=== PATIENT | male | born 1960 | race Caucasian/White ===

== ENCOUNTER 2019-01-24 23:36 | Emergency (ER) | payer OTHER ==
[2019-01-25] MEDS ORDERED: Ketorolac 60 MG/2 ML SDV IM ONE (00:06)
--- NOTE | 2019-01-25 00:12 | EDM.PDOC ---
ED HPI GENERAL MEDICAL PROBLEM - General Chief Complaint: Back Pain or Injury Stated Complaint: PT RONY BACK Time Seen by Provider: 01/25/19 00:00 - History of Present Illness INITIAL COMMENTS - FREE TEXT/NARRATIVE: HISTORY AND PHYSICAL: History of present illness: The patient is a 58-year-old male who works in the [employer] and presents after falling into a hole while walking, which was filled with water and he did not see that it had depth, and injuring his left back and hip area. The patient said that the event occurred about 6:45 PM and due to issues with work it is taking him sometimes to get here for evaluation. He has not taken any medication for this pain. He describes the pain as in his left posterior back radiating to his butt and his left hip area. He says that it is challenging to move his hip and rotate his leg and to weight-bear. He has a history of bulging disks at L4 and L5 for which she has done physical therapy and he has never had surgery for. The patient says that he was walking and the hole was filled with water so he did not know it had any depth and he stepped into it with his left leg and it was about knee deep. He put all his weight on this left side. He has no right-sided back pain no flank pain no head or neck pain. Prior to these events he was in his usual state of good health without systemic issues. Review of systems: As per history of present illness and below otherwise all systems reviewed and negative. Past medical history: As per history of present illness and as reviewed below otherwise noncontributory. Surgical history: As per history of present illness and as reviewed below otherwise noncontributory. Social history: No reported history of drug or alcohol abuse. Family history: As per history of present illness and as reviewed below otherwise noncontributory. Physical exam: General: Well-developed well-nourished mildly overweight man who is nontoxic and vital signs are noted by me HEENT: Atraumatic, normocephalic, negative for conjunctival pallor or scleral icterus, mucous membranes moist, throat clear, neck supple, nontender, trachea midline. Lungs: Clear to auscultation, breath sounds equal bilaterally, chest nontender. Heart: S1S2, regular rate and rhythm no overt murmurs Abdomen: Soft, nondistended, nontender. Negative for masses or hepatosplenomegaly. Negative for costovertebral tenderness. Pelvis: Stable to rock, there is some tenderness with palpation of the posterior lateral hip area but there is no ecchymosis erythema or warmth and no bony abnormalities appreciated. The patient has limited range of motion at the hip and can flex but has limited internal and external rotation due to discomfort and he resists me doing it passively. He also has some tenderness with palpation of the inguinal area without masses. Genitourinary: Deferred. Rectal: Deferred. Extremities: Atraumatic, negative for cords or calf pain. Neurovascular unremarkable. No palpable defects or deformities are appreciated throughout the lower extremities more specifically the left lower leg. There is no malalignment and no swelling of the femur knee tib-fib ankle or foot. Neuro: Awake, alert, oriented. Cranial nerves II through XII unremarkable. Cerebellum unremarkable. Motor and sensory unremarkable throughout. Exam nonfocal. Tone is normal in lower extremities and the patient can dorsi and plantar flex bilaterally 5/5 inclusive of the great toe and he can invert and vijay his feet Back: There are no midline step-offs in his defects of the thoracic or lumbar spine but there is some posterior pelvis tenderness on the left without defects or deformities and some SI joint tenderness as well as tenderness with palpation of the buttocks near the sciatic notch. There is no right-sided tenderness and there is no visible evidence of any trauma such as ecchymosis erythema or soft tissue swelling Diagnostics: X-ray left hip with pelvis, LS spine x-ray Therapeutics: Toradol Norflex She is aware of x-ray findings including the advanced osteoarthritis of bilateral hips left greater than right which he was unaware of and the degenerative disc disease which he was aware of. I recommended that he follow- up for his employer's direction for occupational health and I will give him a note to be off work for the next 24 hours. I will give him [facility] for home Impression: Left lumbar back and hip pain/injury, diffuse degenerative disc disease of the lumbar spine and advanced osteoarthritis and bilateral hips per x-rays Definitive disposition and diagnosis as appropriate pending reevaluation and review of above. back area Pain Score (Numeric/FACES): 10 - Related Data Allergies Allergy/AdvReac Type Severity Reaction Status Date / Time No Known Allergies Allergy Verified 01/24/19 23:51 Home Meds: Home Meds Blood Pressure Meds 1 tab PO DAILY 01/24/19 [History] Past Medical History HEENT History: Reports: None Cardiovascular History: Reports: Hypertension Respiratory History: Reports: None Gastrointestinal History: Reports: None Genitourinary History: Reports: None Musculoskeletal History: Reports: None Neurological History: Reports: None Psychiatric History: Reports: None Endocrine/Metabolic History: Reports: None Insulin Pump Model and Cloud Developer: N/A Hematologic History: Reports: None Immunologic History: Reports: None Oncologic (Cancer) History: Reports: None Dermatologic History: Reports: None - Infectious Disease History Infectious Disease History: Reports: Hepatitis C - Past Surgical History Head Surgeries/Procedures: Reports: None Social & Family History - Family History Family Medical History: Noncontributory - Tobacco Use Smoking Status *Q: Current Every Day Smoker Years of Tobacco use: 8 Packs/Tins Daily: 1 - Caffeine Use Caffeine Use: Reports: None - Recreational Drug Use Recreational Drug Use: No ED ROS GENERAL - Review of Systems Review Of Systems: ROS reveals no pertinent complaints other than HPI. ED EXAM, GENERAL - Physical Exam Exam: See Below (See dictation) Course - Vital Signs Last Recorded V/S: Last Vital Signs Temp 36.5 C 01/24/19 23:50 Pulse 74 01/24/19 23:50 Resp 18 01/24/19 23:50 BP 155/82 H 01/24/19 23:50 Pulse Ox 98 01/24/19 23:50 - Orders/Labs/Meds Meds: Medications Discontinued Medications Generic Name Dose Route Start Last Admin Trade Name Freq PRN Reason Stop Dose Admin Ketorolac Tromethamine 60 mg 01/25/19 00:06 01/25/19 00:16 Toradol IM 01/25/19 00:07 60 mg ONETIME ONE Administration Orphenadrine Citrate 60 mg 01/25/19 00:06 01/25/19 00:15 Norflex IM 01/25/19 00:07 60 mg ONETIME ONE Administration Departure - Departure Time of Disposition: 01:18 Disposition: Home, Self-Care 01 Condition: Good Clinical Impression: Acute exacerbation of chronic low back pain Injury of hip, left Qualifiers: Encounter type: initial encounter Qualified Code(s): S79.912A - Unspecified injury of left hip, initial encounter - Discharge Information Referrals: PCP,None [Primary Care Provider] - Forms: ED Department Discharge Additional Instructions: The following information is given to patients seen in the emergency department who are being discharged to home. This information is to outline your options for follow-up care. We provide all patients seen in our emergency department with a follow-up referral. The need for follow-up, as well as the timing and circumstances, are variable depending upon the specifics of your emergency department visit. If you don't have a primary care physician on staff, we will provide you with a referral. We always advise you to contact your personal physician following an emergency department visit to inform them of the circumstance of the visit and for follow-up with them and/or the need for any referrals to a consulting specialist. The emergency department will also refer you to a specialist when appropriate. This referral assures that you have the opportunity for followup care with a specialist. All of these measure are taken in an effort to provide you with optimal care, which includes your followup. Under all circumstances we always encourage you to contact your private physician who remains a resource for coordinating your care. When calling for followup care, please make the office aware that this follow-up is from your recent emergency room visit. If for any reason you are refused follow-up, please contact the [facility] emergency department at and ask to speak to the emergency department charge nurse. [facility] Primary care- Internal Medicine and Family [address] [address] Ice to all areas of discomfort swelling and pain for the next 24 hours and then switch to heat. Please connect with your employer to see if you need to follow- up with his occupational health specialist and rest as much as possible over the next 24 hours. You have been given meds from [facility], diclofenac Flexeril and a Medrol Dosepak as well as some tramadol. These take medications as directed and needed. These are anti-inflammatory drugs as well as a muscle relaxer and pain medication. Return to ER as needed and as discussed and follow- up in our clinic as well as you choose for follow-up care using resources given to above
--- NOTE | 2019-01-25 01:03 | CR ---
Indication: Fall Technique: Pelvis and left hip 3 views Comparison: None Findings: Bones: Alignment is normal. No fractures or bone lesions. Joint spaces: Advanced left hip osteoarthritis with joint space narrowing, subcortical sclerosis, osteophytes and subcortical cysts. Moderate right hip osteoarthritis. Soft tissues: Unremarkable. Impression: No evidence of fracture or dislocation. Advanced left hip osteoarthritis. Dictated by Dale Rene MD @ Jan 25 2019 12:54AM Signed by Dr. Dale Rene @ Jan 25 2019 1:01AM
--- NOTE | 2019-01-25 01:03 | CR ---
INDICATION: Fall TECHNIQUE: Lumbar spine 3 view COMPARISON: None FINDINGS: Bones: Alignment is normal. No fractures or significant bone lesions. Joints: Diffuse degenerative disc disease with disc space narrowing at L3-4, L4-5 and L5-S1 and diffuse osteophytes. Facet hypertrophy at L4-5 and L5-S1. Soft tissues: Unremarkable. IMPRESSION: Diffuse degenerative disc disease lumbar spine, greatest at the L3-4 through L5-S1 levels. Dictated by Dale Rene MD @ Jan 25 2019 1:01AM Signed by Dr. Dale Rene @ Jan 25 2019 1:02AM
== END 2019-01-25 01:39 | disposition home or self-care (01) ==
LOC: MW.ED 23:36
DX: S79.912A Unspecified injury of left hip, initial encounter (principal); M51.36 Other intervertebral disc degeneration, lumbar region; M16.0 Bilateral primary osteoarthritis of hip; G89.29 Other chronic pain; F17.210 Nicotine dependence, cigarettes, uncomplicated; W17.2XXA Fall into hole, initial encounter
CPT/HCPCS: 72100; 73502; 96372; 99283; J1885; J2360